=== PATIENT | female | born 1990 | race African-American/Black ===

== ENCOUNTER 2021-07-07 13:07 | Emergency (ER) | payer OTHER ==
[~2021-07-07] VITALS: Ht 160 cm; Wt 93.7 kg
[2021-07-07 13:19] VITALS: BP 142/80
--- NOTE | 2021-07-07 13:27 | PHYS DOC ---
Past History Past Surgical History: No Surgical History (ENEDELIA OLSEN APRN) Alcohol Use: None (ENEDELIA OLSEN APRN) General Adult EDM: Chief Complaint: CHEST PAIN HPI: HPI: Patient is a 31-year-old female who presents to the emergency department with a 3-day history of right-sided chest pain. She reports that the chest pain is constant and currently rates it 7 out of 10. The pain does not radiate. No treatment prior to arrival. Patient reports that the chest pain is worse with movement and deep inspiration. It is not relieved by rest. Patient is reporting shortness of breath. She denies nausea, vomiting, leg swelling, cough, fever. (ENEDELIA OLSEN APRN) Review of Systems: Review of Systems: Constitutional: See HPI Respiratory: See HPI Cardiovascular: See HPI GI: See HPI Musculoskeletal: Denies chest wall injury (ENEDELIA OLSEN APRN) Allergies: Allergies: Allergies Coded Allergies Type Severity Reaction Last Updated Verified No Known Drug Allergies 07/07/21 No (ENEDELIA OLSEN APRN) Physical Exam: PE: Constitutional: Well developed, well nourished, no acute distress, non-toxic appearance. [] HENT: Normocephalic, atraumatic, bilateral external ears normal, oropharynx moist, no oral exudates, nose normal. [] Eyes: PERRL, EOMI, conjunctiva normal, no discharge. [] Neck: Normal range of motion, no stridor Cardiovascular:Heart rate regular rhythm, no murmur [] Lungs & Thorax: Bilateral breath sounds clear to auscultation [] Abdomen: Bowel sounds normal, soft, no tenderness, no masses, no pulsatile masses. [] Skin: Warm, dry, no erythema, no rash. [] Back: No tenderness, normal range of motion Extremities: No tenderness, no cyanosis, no clubbing, ROM intact, no edema. [] Neurologic: Alert and oriented X 3, normal motor function, normal sensory function, no focal deficits noted. [] Psychologic: Affect normal, judgement normal, mood normal. [] (ENEDELIA OLSEN APRN) Current Patient Data: Labs: Laboratory Tests Test 07/07/21 13:31 White Blood Count 4.2 x10^3/uL Red Blood Count 4.45 x10^6/uL Hemoglobin 9.1 g/dL Hematocrit 29.7 % Mean Corpuscular Volume 67 fL Mean Corpuscular Hemoglobin 21 pg Mean Corpuscular Hemoglobin Concent 31 g/dL Red Cell Distribution Width 18.2 % Platelet Count 409 x10^3/uL Neutrophils (%) (Auto) 57 % Lymphocytes (%) (Auto) 29 % Monocytes (%) (Auto) 9 % Eosinophils (%) (Auto) 3 % Basophils (%) (Auto) 2 % Neutrophils # (Auto) 2.4 x10^3uL Lymphocytes # (Auto) 1.2 x10^3/uL Monocytes # (Auto) 0.4 x10^3/uL Eosinophils # (Auto) 0.1 x10^3/uL Basophils # (Auto) 0.1 x10^3/uL Platelet Estimate Adequate Hypochromasia Present Anisocytosis Present Microcytosis Present Target Cells Present Tear Drop Cells Ovalocytes Present D-Dimer (Radha) 0.55 mg/L Sodium Level 140 mmol/L Potassium Level 4.4 mmol/L Chloride Level 106 mmol/L Carbon Dioxide Level 27 mmol/L Anion Gap 7 Blood Urea Nitrogen 13 mg/dL Creatinine 0.8 mg/dL Estimated GFR (Cockcroft-Gault) 100.6 BUN/Creatinine Ratio 16 Glucose Level 87 mg/dL Calcium Level 9.1 mg/dL Total Bilirubin 0.4 mg/dL Aspartate Amino Transf (AST/SGOT) 26 U/L Alanine Aminotransferase (ALT/SGPT) 18 U/L Alkaline Phosphatase 55 U/L Troponin I High Sensitivity 6 ng/L Total Protein 6.8 g/dL Albumin 3.5 g/dL Albumin/Globulin Ratio 1.1 Current Medications Medications (Trade) Dose Ordered Sig/Michelle Route PRN Reason Start Time Stop Time Status Last Admin Dose Admin Sodium Chloride 1,000 ml @ 1,000 mls/hr Q1H IV 07/07/21 13:30 07/07/21 14:30 DC 07/07/21 13:37 Morphine Sulfate (Morphine 2mg Syringe) 2 mg 1X ONCE IV 07/07/21 13:30 07/07/21 13:31 DC 07/07/21 13:34 Iohexol (Omnipaque 350 Mg/ml) 100 ml 1X ONCE IV 07/07/21 14:30 07/07/21 14:34 DC 07/07/21 14:44 Vital Signs: Vital Signs Date Time Temp Pulse Resp B/P (MAP) Pulse Ox O2 Delivery O2 Flow Rate FiO2 07/07/21 13:19 97.0 71 18 142/80 (100) 99 Room Air (ENEDELIA OLSEN APRN) EKG: EKG: EKG performed by ER staff at 1313 shows sinus rhythm with a rate of 75, QTC is 434, no STEMI read by Dr. Galo at 1316 [] (ENEDELIA OLSEN APRN) Radiology/Procedures: Radiology/Procedures: []REASON: elevated ddimer, cp, CHEST PRESSURE, SOA, OMNI 350, 100ml PROCEDURE: CT ANGIOGRAPHY CHEST Study: CT CHEST WITH CONTRAST - PULMONARY ANGIOGRAM History: Elevated d-dimer, chest pain, chest pressure, shortness of air Comparison: None Technique: Helical CT of the chest performed after the administration of 100 mL Omnipaque 350 intravenous contrast and timed for angiographic evaluation of the pulmonary arteries per PE protocol. Coronal and sagittal 3D MIP reformations were obtained. One or more of the following individualized dose reduction techniques were utilized for this examination: 1. Automated exposure control 2. Adjustment of the mA and/or kV according to patient size 3. Use of iterative reconstruction technique. Findings: Pulmonary Arteries: Contrast bolus is adequate. There is no acute pulmonary embolism. Heart/Systemic Vasculature: The heart is normal in size. The thoracic aorta is normal. Mediastinum: No mediastinal or hilar lymphadenopathy. Lungs: The lungs are clear. No pleural effusion or pneumothorax. Neck/Axilla/Body Wall: No axillary lymphadenopathy. Visualized portion of thyroid gland is normal. Upper Abdomen: Unremarkable. Bones: No acute osseous abnormality. IMPRESSION: No acute pulmonary embolism. Electronically signed by: Tram Mitchell MD (07/07/2021 3:16 PM) [id number] DICTATED AND SIGNED BY: TRAM MITCHELL MD DATE: 07/07/21 1510 CC: ENEDELIA OLSEN APRN; MAURICE JARQUIN [employer]-BC ~ (ENEDELIA OLSEN APRN) Heart Score: C/O Chest Pain: Yes HEART Score for Chest Pain: HEART Score for Chest Pain Response (Comments) Value History Slighlty/Non-Suspicious 0 ECG Normal 0 Age < 45 0 Risk Factors No Risk Factors 0 Troponin < Normal Limit 0 Total 0 Risk Factors: Risk Factors: DM, Current or recent (<one month) smoker, HTN, HLP, family history of CAD, obesity. Risk Scores: Score 0 - 3: 2.5% MACE over next 6 weeks - Discharge Home Score 4 - 6: 20.3% MACE over next 6 weeks - Admit for Clinical Observation Score 7 - 10: 72.7% MACE over next 6 weeks - Early Invasive Strategies (ENEDELIA OLSEN APRN) Course & Med Decision Making: Course & Med Decision Making Pertinent Labs and Imaging studies reviewed. (See chart for details) [] Patient presents to the emergency department for 3-day history of chest pain. Chest pain is worse with movement and deep inspiration. She is also reporting shortness of breath. She has no medical history. She is not a smoker. Work- up in the ER consisted of blood work including troponin. Patient denies any leg swelling but she is experiencing pleuritic chest pain with shortness of breath therefore D-dimer was ordered. Chest x-ray performed. . Patient treated with IV fluids and pain medication. EKG shows sinus rhythm. Patient's troponin was not elevated. She was noted to have anemia, her hemoglobin was 9.1. She has a microcytic anemia possibly iron deficiency as she is on her menstrual cycle. At this time patient does not require a blood transfusion. No past lab results for comparison. Chest x-ray negative Patient's D-dimer was slightly elevated at 0.55 from normal range of 0.50. A CT angio of chest was performed to rule out PE and it was negative. Patient advised to take anti-inflammatory medications for her chest pain as it is likely musculoskeletal in nature. She is advised to follow-up with her primary care provider regarding her anemia and have her hemoglobin hematocrit rechecked. Jeremy vega given cardiology referral information. Patient's vital signs are stable. Her heart score is 0. Delta troponins not performed as patient has had chest pain for 3 days. I discussed with patient all findings and diagnostic testing as well as the need to follow-up with PCP for further evaluation and treatment or return to the ER if any new or worsening symptoms. Strict return precautions were also discussed at length. Patient voiced understanding and agreement with the plan. Patient is hemodynamically stable at the time of disposition. (ENEDELIA OLSEN APRN) Dragon Disclaimer: Dragon Disclaimer: This electronic medical record was generated, in whole or in part, using a voice recognition dictation system. (ENEDELIA OLSEN APRN) Attending Co-Sign The patient was seen and interviewed as well as examined at the bedside. The chart was reviewed. The case was discussed. Agree with the plan of care. (ROBIN GALO DO) Departure Departure: Impression: Primary Impression: Anemia Qualified Codes: D64.9 - Anemia, unspecified Additional Impression: Chest pain Qualified Codes: R07.1 - Chest pain on breathing Disposition: HOME / SELF CARE / HOMELESS Referrals: MAURICE JARQUIN (PCP) Patient Instructions: Anemia, Nonspecific-Brief, Chest Pain (Nonspecific), Chest Wall Pain, [id number] Additional Instructions: You were seen in the emergency department for 3-day history of chest pain. As discussed, does not appear that you are experiencing acute coronary syndrome at this time. It is possible that your chest pain is musculoskeletal in nature please take anti-inflammatory medications at home. Increase your fluids and rest. As discussed, you were noted to have anemia, this may be due to your menses, please follow-up with your primary care provider tomorrow regarding your ER visit. You will need to have your hemoglobin and hematocrit rechecked to ensure that they are not decreasing. You may need to take him iron supplement but please discuss this with your primary care provider. You are being discharged home with information regarding a regulatory compliance manager and I would like you to follow-up with. Return to the emergency department if you develop chest pain, shortness of breath, dizziness, syncope, intractable nausea or vomiting, high fevers refractory to treatment, leg swelling or any new or worsening concerns. ENEDELIA OLSEN APRN Jul 07, 2021 13:27 ROBIN GALO DO Jul 08, 2021 06:08
[2021-07-07] MEDS ORDERED: MORPHINE SULFATE 2 MG/ML DISP.SYRIN. IV ONE (13:30)
[2021-07-07] MEDS ORDERED: IV NORMAL SALINE 1,000ML 1,000 ML IV SCH (13:30)
[2021-07-07 13:46] LABS: BASO # 0.1 x10^3/uL (0.0-0.2); BASO % 2 % (0-3); EOS # 0.1 x10^3/uL (0.0-0.7); EOS % 3 % (0-3); HEMATOCRIT 29.7 % (36.0-47.0); HEMOGLOBIN 9.1 g/dL (12.0-15.5); LYMPH # 1.2 x10^3/uL (1.0-4.8); LYMPH % 29 % (24-48); MEAN CORPUSCULAR HEMOGLOBIN 21 pg (25-35); MEAN CORPUSCULAR HGB CONC 31 g/dL (31-37); MEAN CORPUSCULAR VOLUME 67 fL (79-100); MONO # 0.4 x10^3/uL (0.0-1.1); MONO % 9 % (0-9); NEUT # 2.4 x10^3uL (1.8-7.7); NEUT % 57 % (31-73); PLATELET COUNT 409 x10^3/uL (140-400); RED BLOOD COUNT 4.45 x10^6/uL (3.50-5.40); RED CELL DISTRIBUTION WIDTH 18.2 % (11.5-14.5); WHITE BLOOD COUNT 4.2 x10^3/uL (4.0-11.0)
[2021-07-07 14:03] LABS: CALCIUM 9.1 mg/dL (8.5-10.1); CREATININE 0.8 mg/dL (0.6-1.0); GFR 100.6; POTASSIUM 4.4 mmol/L (3.5-5.1)
--- NOTE | 2021-07-07 14:05 | RAD ---
XR CHEST 2V History: Reason: chest pain, hx pneumonia / Spl. Instructions: / History: Comparison: None. Findings: No consolidation or pleural effusion. Normal heart size. No pneumothorax. Impression: 1. No acute cardiopulmonary process. Electronically signed by: Jamie Newsome DO (07/07/2021 2:03 PM) [facility] [place]
[2021-07-07 14:08] LABS: HYPOCHROMIA PRESENT
[2021-07-07 14:09] LABS: ANISOCYTOSIS PRESENT; MICROCYTOSIS PRESENT; OVALOCYTES PRESENT; TARGET CELLS PRESENT
[2021-07-07 14:10] LABS: PLT ESTIMATE ADEQUATE (ADEQUATE)
[2021-07-07 14:13] LABS: ALBUMIN 3.5 g/dL (3.4-5.0); ALBUMIN/GLOBULIN RATIO 1.1 (1.0-1.7); TOTAL BILIRUBIN 0.4 mg/dL (0.2-1.0); TOTAL PROTEIN 6.8 g/dL (6.4-8.2)
[2021-07-07] MEDS ORDERED: IOHEXOL 350 MG/ML 100 ML VIAL. IV ONE (14:30)
--- NOTE | 2021-07-07 15:19 | RAD ---
Study: CT CHEST WITH CONTRAST - PULMONARY ANGIOGRAM History: Elevated d-dimer, chest pain, chest pressure, shortness of air Comparison: None Technique: Helical CT of the chest performed after the administration of 100 mL Omnipaque 350 intrav enous contrast and timed for angiographic evaluation of the pulmonary arteries per PE protocol. Coron al and sagittal 3D MIP reformations were obtained. One or more of the following individualized dose reduction techniques were utilized for this examinat ion: 1. Automated exposure control 2. Adjustment of the mA and/or kV according to patient size 3. Use of iterative reconstruction technique. Findings: Pulmonary Arteries: Contrast bolus is adequate. There is no acute pulmonary embolism. Heart/Systemic Vasculature: The heart is normal in size. The thoracic aorta is normal. Mediastinum: No mediastinal or hilar lymphadenopathy. Lungs: The lungs are clear. No pleural effusion or pneumothorax. Neck/Axilla/Body Wall: No axillary lymphadenopathy. Visualized portion of thyroid gland is normal. Upper Abdomen: Unremarkable. Bones: No acute osseous abnormality. IMPRESSION: No acute pulmonary embolism. Electronically signed by: Tram Mitchell MD (07/07/2021 3:16 PM) [id number]
--- NOTE | 2021-07-07 20:30 | EKG ---
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
== END 2021-07-07 15:56 | disposition home or self-care (01) ==
LOC: ER 13:07
DX: D64.9 Anemia, unspecified (principal); R07.1 Chest pain on breathing
CPT/HCPCS: 36415; 71046; 71275; 80053; 84484; 85025; 85379; 93005; 96361; 96374; 99285; J2270; J7030; Q9967